=== PATIENT | male | born 1980 | race Two or more races ===

== ENCOUNTER 2023-09-13 20:21 | Emergency (ER) | payer OTHER ==
[~2023-09-13] VITALS: Ht 170.2 cm; Wt 99.8 kg
== END 2023-09-14 01:29 | disposition home or self-care (01) ==
LOC: ER 20:21
DX: S00.03XA Contusion of scalp, initial encounter (principal); W18.30XA Fall on same level, unspecified, initial encounter; Y93.89 Activity, other specified; Y92.59 Other trade areas as the place of occurrence of the external cause; Y99.9 Unspecified external cause status; M54.89 Other dorsalgia